=== PATIENT | female | born 1950 | race Caucasian/White ===

== ENCOUNTER → 2017-07-15 | Outpatient (CLI) | payer MEDICARE, MEDICAID ==
[~2017-07-15] MED LIST: CATHETER FLUSH 10 ML SYR IV PRN; CEFU500T PO; DESV100T PO; DIATRIZOATE MEGLUM/SODIUM 37% 120 ML (GASTROGRAFIN) PO ONE; IOHEXOL 350 MG/ML 100 ML (OMNIPAQUE 350) VIAL IV ONE; LIRA0.6P SQ; LNS30CCR PO; MTF500T PO; MTP100TCR PO; NAPR220T76 PO; NITR100C3 PO; NS 100 ML (IVPB) BAG IV ONE; OXYB10TA PO
--- NOTE | 2017-07-15 14:25 | Diagnostic Imaging Report ---
PROCEDURE: CT abdomen and pelvis with contrast. TECHNIQUE: Multiple contiguous axial images were obtained through the abdomen and pelvis after administration of intravenous contrast. INDICATION: History of gastric sleeve. Two previous hernia repair. Comparison with 01/22/2014. FINDINGS: Contrasted images are limited as IV infiltrated. Moderate contrast was obtained, however. The liver appears normal. The gallbladder is absent. The bile ducts not dilated. The pancreas and spleen are normal. The adrenal glands appear normal. The kidneys appear normal. Delayed images show normal-appearing renal collecting system. Both ureters are visualized to the bladder which appear normal. There is gastric sleeve surgery noted. No evidence of bowel obstruction. Small bowel shows oral contrast present. The appendix is visualized and normal. Colon shows normal stool and gas pattern. There is diverticulosis of the descending and sigmoid colon with no definite changes of acute diverticulitis. The spigelian hernia along the anterior right lateral abdominal wall on previous study has been repaired. Mesh appears intact. There is a small new hernia just superior to the mesh in the midline measuring 2 cm at the opening. The hernia sac contains a small amount of omental fat. IMPRESSION: 1. Repaired spigelian hernia without recurrence. 2. Small new hernia has developed along the superior margin of the mesh in the midline. This contains omental fat. Dictated by: Dictated on workstation # [id number]
== END ==
LOC: RAD 11:20
PROVIDERS: ATTEND Obstetrics & Gynecology
DX: K43.9 Ventral hernia without obstruction or gangrene (principal); Z98.84 Bariatric surgery status
CPT/HCPCS: 74177

== ENCOUNTER → 2018-01-17 | Outpatient (CLI) | payer MEDICARE, MEDICAID ==
[~2018-01-17] MED LIST changes: -CATHETER FLUSH 10 ML SYR IV PRN; -DIATRIZOATE MEGLUM/SODIUM 37% 120 ML (GASTROGRAFIN) PO ONE; -NS 100 ML (IVPB) BAG IV ONE; +NS 250 ML (IVPB) BAG IV ONE
[2018-01-17 11:06] LABS: BUN/CREATININE RATIO 25; CREATININE SERUM 0.79 MG/DL (0.60-1.30); GFR ESTIMATED > 60
--- NOTE | 2018-01-17 16:24 | Diagnostic Imaging Report ---
PROCEDURE: CT abdomen and pelvis with and without contrast. TECHNIQUE: Precontrast acquisitions were acquired through the abdomen and pelvis. Multiple contiguous axial images were obtained through the abdomen and pelvis after the administration of intravenous contrast. INDICATION: Hernia. Exam compared 07/15/2017. FINDINGS: Periumbilical fatty hernia is unchanged. Below that level is marked thinning and bulging of the anterior abdominal wall muscles and fascia with full-thickness defect at its inferior margin. The focal herniation contains a segment of diverticulated sigmoid colon unchanged from the prior. No resultant bowel obstruction. No other abdominal wall defect. Postoperative change to the EG junction noted. The liver, spleen, adrenals, pancreas unremarkable. Aortoiliac vessels patent and nonaneurysmal. The uterus, adnexa and urinary bladder appeared unremarkable. There is no ascites, abscess, hematoma or fluid collection. IMPRESSION: Large thinning and bulging of the anterior abdominal wall inferiorly with full-thickness fascial defect at its caudal aspect unchanged from prior. The discrete hernia containing diverticulated sigmoid colon appearing unchanged and without obstruction. Periumbilical fatty hernia unchanged. No bowel, biliary or urinary tract obstruction. No ascites or fluid collection. Dictated by: Dictated on workstation # [id number]
== END ==
LOC: RAD 10:34
PROVIDERS: ATTEND Obstetrics & Gynecology
DX: K40.90 Unilateral inguinal hernia, without obstruction or gangrene, not specified as recurrent (principal); K57.30 Diverticulosis of large intestine without perforation or abscess without bleeding; K42.9 Umbilical hernia without obstruction or gangrene; K43.9 Ventral hernia without obstruction or gangrene
CPT/HCPCS: 36415; 74178; 82565; 84520

== ENCOUNTER → 2018-01-26 | Outpatient (CLI) | payer MEDICARE, MEDICAID ==
[~2018-01-26] MED LIST changes: -IOHEXOL 350 MG/ML 100 ML (OMNIPAQUE 350) VIAL IV ONE; -NS 250 ML (IVPB) BAG IV ONE
--- NOTE | 2018-01-26 10:29 | Diagnostic Imaging Report ---
PROCEDURE: US abdomen complete. TECHNIQUE: Multiple real-time grayscale images were obtained over the abdomen in various projections. INDICATION: Right flank pain. FINDINGS: Liver is normal in size at 15.5 cm. No discrete liver mass is identified. The gallbladder is surgically absent. No intrahepatic or extrahepatic biliary duct dilatation is seen. Visualized pancreas is unremarkable. The spleen is normal in size. The mid and distal aorta are of normal caliber. The IVC is unremarkable. The right and left kidneys are unremarkable. There is no ascites. IMPRESSION: Status post cholecystectomy. No acute feature in the abdomen is identified. Dictated by: Dictated on workstation # [id number]
== END ==
LOC: RAD 08:05
PROVIDERS: ATTEND Nurse Practitioner Community Health
DX: R10.9 Unspecified abdominal pain (principal); Z90.49 Acquired absence of other specified parts of digestive tract
CPT/HCPCS: 76700

== ENCOUNTER → 2018-12-05 | Outpatient (CLI) | payer MEDICARE, MEDICAID ==
[~2018-12-05] MED LIST changes: +CATHETER FLUSH 10 ML SYR IV PRN; +IOPAMIDOL 61% 100 ML (ISOVUE 300) VIAL IV ONE; +NS 100 ML (IVPB) BAG IV ONE; +RECEIVED CONTRAST (Hold Metformin) IV SCH
[2018-12-05 09:03] LABS: BUN/CREATININE RATIO 19; CREATININE SERUM 0.83 MG/DL (0.60-1.30); GFR ESTIMATED > 60
--- NOTE | 2018-12-05 11:35 | Diagnostic Imaging Report ---
PROCEDURE: CT abdomen and pelvis with contrast. TECHNIQUE: Multiple contiguous axial images were obtained through the abdomen and pelvis after administration of intravenous contrast. INDICATION: Anterior abdominal wall hernia. COMPARISON: Comparison made with prior examination from 01/17/2018. FINDINGS: The heart size is normal. The lung bases are clear. The liver is normal in size without focal lesions. Gallbladder is surgically absent. There is no biliary ductal dilatation. The spleen is normal. Pancreas and adrenal glands are unremarkable. The kidneys are normal in appearance. Aorta is nonaneurysmal. Bowel gas pattern is nonspecific. There is a persistent small periumbilical hernia containing only fat. Note is again made of a large caudal defect in the anterior peritoneum with herniation of a small and large bowel. None of this appears to be particularly strangulated or obstructed. There are degenerative changes in the spine. There is no pelvic mass or adenopathy. There is no free air. There are no focal inflammatory changes. IMPRESSION: Anterior abdominal wall hernia inferiorly where there is a full-thickness fascial defect along its caudal aspect. There is unchanged herniation of both large and small bowel. Persistent periumbilical hernia containing only fat. No other acute abnormality in the abdomen or pelvis. Dictated by: Dictated on workstation # [id number]
== END ==
LOC: RAD FS 08:13
DX: K43.2 Incisional hernia without obstruction or gangrene (principal); K42.9 Umbilical hernia without obstruction or gangrene; Z90.49 Acquired absence of other specified parts of digestive tract
CPT/HCPCS: 36415; 74177; 82565; 84520

== ENCOUNTER → 2020-09-19 | Outpatient (CLI) | payer MEDICARE, MEDICAID ==
[~2020-09-19] MED LIST changes: +HOLD METFORMIN - RECEIVED CONTRAST 20 ML VIAL IV SCH; +IOHEXOL 350 MG/ML 100 ML (OMNIPAQUE 350) VIAL IV ONE; -IOPAMIDOL 61% 100 ML (ISOVUE 300) VIAL IV ONE; -RECEIVED CONTRAST (Hold Metformin) IV SCH
--- NOTE | 2020-09-19 10:43 | Diagnostic Imaging Report ---
PROCEDURE: CT abdomen and pelvis with and without contrast. TECHNIQUE: Precontrast acquisitions were acquired through the abdomen and pelvis. Multiple contiguous axial images were obtained through the abdomen and pelvis after the administration of intravenous contrast. Auto Exposure Controls were utilized during the CT exam to meet ALARA standards for radiation dose reduction. INDICATION: Right lower quadrant abdominal pain for two months. COMPARISON: Correlation is made with prior CT from 12/05/2018. FINDINGS: The lung bases are clear. No discrete liver mass is identified. Gallbladder is surgically absent. No biliary ductal dilatation is seen. Postoperative changes from gastric bypass surgery are noted. Pancreas and spleen are unremarkable. No adrenal mass is detected. Kidneys are unremarkable. There is no hydronephrosis. Aorta is non-aneurysmal. There is no central, retroperitoneal or mesenteric lymphadenopathy. Postoperative changes to the anterior abdominal wall are noted. There is some stranding in the subcutaneous fat of the anterior abdominal wall. The small and large bowel loops are normal caliber. No obstruction is seen. The appendix is visualized in the right lower quadrant and appears unremarkable. The bladder and uterus are unremarkable. There is no free fluid or fluid collection. The bony structures are nonacute. IMPRESSION: Postoperative changes to the anterior abdominal wall. No acute process in the abdomen or pelvis is identified. Dictated by: Dictated on workstation # [id number]
== END ==
LOC: RAD FS 08:53
PROVIDERS: ATTEND Nurse Practitioner Community Health
DX: R10.31 Right lower quadrant pain (principal)
CPT/HCPCS: 74178

== ENCOUNTER 2021-02-04 05:32 | Outpatient (CLI) | payer MEDICARE, MEDICAID ==
[~2021-02-04] VITALS: Ht 157.5 cm; Wt 99.5 kg
[~2021-02-04 05:32] MED LIST changes: -CATHETER FLUSH 10 ML SYR IV PRN; -HOLD METFORMIN - RECEIVED CONTRAST 20 ML VIAL IV SCH; -IOHEXOL 350 MG/ML 100 ML (OMNIPAQUE 350) VIAL IV ONE; -NS 100 ML (IVPB) BAG IV ONE
[2021-02-04] MEDS ORDERED: ESTR42.511 VG (11:07)
[2021-02-04] MEDS ORDERED: GABA100C PO (11:07)
[2021-02-04] MEDS ORDERED: LIRA0.6P3 SQ (11:07)
[2021-02-04] MEDS ORDERED: CYAN1TAB26 PO (11:07)
[2021-02-04] MEDS ORDERED: ASPI-999 PO (11:07)
[2021-02-04] MEDS ORDERED: SPIR25TA5 PO (11:07)
== END 2021-02-04 11:59 | disposition home or self-care (01) ==
LOC: PREOP 05:32
PROVIDERS: ATTEND Obstetrics & Gynecology
DX: Z01.818 Encounter for other preprocedural examination (principal)

== ENCOUNTER 2021-02-10 09:11 | Day surgery (SDC) | payer MEDICARE, MEDICAID ==
[2021-02-10] VITALS (12 sets, daily range): BP systolic 114–166; BP diastolic 60–94
[~2021-02-10] VITALS: Ht 157.5 cm; Wt 99.5 kg
[~2021-02-10 09:11] MED LIST changes: +ASPI-999 PO; +CYAN1TAB26 PO; +ESTR42.511 VG; +GABA100C PO; +LIRA0.6P3 SQ; +SPIR25TA5 PO
[2021-02-10] MEDS ORDERED: NS (IVPB) 100 ML ONE (09:24)
[2021-02-10] MEDS ORDERED: VASOPRESSIN INJECTION 20 UNIT/ML VIAL ONE (09:25)
[2021-02-10] MEDS ORDERED: metroNIDAZOLE 500MG/100ML IVPB 100 ML IV ONE (09:30)
[2021-02-10] MEDS ORDERED: ceFAZolin 2 GM IV Premixed 50 ML IV ONE (09:30)
[2021-02-10] MEDS ORDERED: fentaNYL INJ 100 MCG/2 ML AMP ONE (09:38)
[2021-02-10] MEDS ORDERED: MIDAZOLAM 2 MG/2 ML (VERSED) VIAL ONE (09:38)
[2021-02-10] MEDS: LACTATED RINGERS 1,000 ML IV PRN ×2 (09:48→14:02)
[2021-02-10 09:53] LABS: BASOPHILS % (AUTO) 0 % (0-10); EOSINOPHILS # (AUTO) 0.1 10^3/uL (0.0-0.3); EOSINOPHILS % (AUTO) 2 % (0-10); HEMATOCRIT 37 % (35-52); HEMOGLOBIN 11.2 g/dL (11.5-16.0); LYMPHOCYTES # (AUTO) 1.3 10^3/uL (1.0-4.0); LYMPHOCYTES % (AUTO) 29 % (12-44); MEAN CORPUSCULAR HEMOGLOBIN 27 pg (25-34); MEAN CORPUSCULAR HGB CONC 31 g/dL (32-36); MEAN CORPUSCULAR VOLUME 86 fL (80-99); MEAN PLATELET VOLUME 10.3 fL (9.0-12.2); MONOCYTES # (AUTO) 0.3 10^3/uL (0.0-1.0); MONOCYTES % (AUTO) 8 % (0-12); NEUTROPHILS # (AUTO) 2.7 10^3/uL (1.8-7.8); NEUTROPHILS % (AUTO) 61 % (42-75); PLATELET COUNT 174 10^3/uL (130-400); WHITE BLOOD COUNT 4.5 10^3/uL (4.3-11.0)
[2021-02-10 09:53] LABS: BILIRUBIN,URINE NEGATIVE (NEGATIVE); CLARITY,URINE CLEAR; COLOR,URINE YELLOW; GLUCOSE, URINE (UA) NEGATIVE (NEGATIVE); KETONES,URINE NEGATIVE (NEGATIVE); LEUKOCYTE ESTERASE ,URINE TRACE (NEGATIVE); NITRITE,URINE NEGATIVE (NEGATIVE); PROTEIN,URINE NEGATIVE (NEGATIVE)
[2021-02-10 09:55] LABS: BACTERIA,URINE FEW /HPF
--- NOTE | 2021-02-10 10:48 | Progress Note-Pre Operative ---
Pre-Operative Progress Note H&P Reviewed The H&P was reviewed, patient examined and no changes noted. Date Seen by Provider: February 10, 2021 Time Seen by Provider: 10:50 Date H&P Reviewed: February 10, 2021 Time H&P Reviewed: 10:45 Pre-Operative Diagnosis: rectocele, incontinence NIKKI BARRERA DO February 10, 2021 10:48
[2021-02-10] MEDS ORDERED: ESTRADIOL VAGINAL CREAM 42.5 GM (ESTRACE) VG ONE (12:19)
[2021-02-10] MEDS ORDERED: ROCURONIUM 10 MG/ML 5 ML SYRINGE IV ONE (12:20)
[2021-02-10] MEDS ORDERED: LIDOCAINE PF 2% 5 ML (XYLOCAINE) VIAL ONE (12:27)
[2021-02-10] MEDS ORDERED: ONDANSETRON 4 MG/2 ML (SDV) Z0FRAN ONE (12:27)
[2021-02-10] MEDS ORDERED: SEVOFLURANE (ULTANE) 15 ML INHAL SOLN ONE (12:27)
[2021-02-10] MEDS ORDERED: BENZOCAINE/MENTHOL (DERMOPLAST) 56 ML CAN TP PRN (12:30)
[2021-02-10] MEDS ORDERED: morphine INJ 4 MG/ML 1 ML (VIAL/SYRINGE) IVP PRN (12:30)
[2021-02-10] MEDS ORDERED: METOCLOPRAMIDE INJ 10 MG/2 ML (REGLAN) IV PRN (12:30)
[2021-02-10] MEDS ORDERED: MEPERIDINE (DEMEROL) INJ 50 MG/ML IVP ONE (12:45)
[2021-02-10] MEDS ORDERED: morphine INJ 10 MG/ML 1ML (SYR OR VIAL) IVP ONE (12:45)
[2021-02-10] MEDS ORDERED: fentaNYL INJ 100 MCG/2 ML AMP IVP ONE (12:45)
[2021-02-10] MEDS ORDERED: ONDANSETRON 4 MG/2 ML (SDV) Z0FRAN IVP PRN (12:45)
[2021-02-10] MEDS ORDERED: KETOROLAC 30 MG/ML VIAL ONE (12:58)
[2021-02-10] MEDS: KETOROLAC 30 MG/ML VIAL IV SCH ×2 (13:07→20:28)
[2021-02-10] MEDS ORDERED: ACETAMINOPHEN 500 MG TAB (TYLENOL) ONE (14:17)
[2021-02-10] MEDS: ACETAMINOPHEN 500 MG TAB (TYLENOL) PO SCH (14:27)
--- NOTE | 2021-02-10 21:57 | Operative Report ---
Operative Report Date of Procedure/Surgery February 10, 2021 Surgeon (s) NIKKI BARRERA DO Marketing Underwriter (s): Mohamud Valenzuela, MS III Post-Operative Diagnosis Rectocele/enterocele Incontinence Procedure Performed Posterior colporrhaphy Pubovaginal sling Description of Procedure Anesthesia Type: General Specimen(s) collected/removed none Findings of the Procedure 4+ rectocele/enterocele 1-2 + cystocele > 45 deg rotation of the urethra Allergies and Home Medications Allergies Coded Allergies: No Known Drug Allergies (Verified Allergy, Unknown, 07/15/09) Home Medications Aspirin 81 Mg Tab.chew, 81 MG PO DAILY, (Reported) Cyanocobalamin/Folic Acid 1 Each Tablet, 1 EACH PO DAILY, (Reported) Estradiol 42.5 Gm Cream.appl, 1 GM VG MoWeFr, (Reported) Gabapentin 100 Mg Capsule, 100 MG PO BID, (Reported) Liraglutide 0.6 Mg/0.1 Ml Pen.injctr, 1.8 MG SQ DAILY, (Reported) Spironolactone 25 Mg Tablet, 25 MG PO DAILY, (Reported) Patient Home Medication List Home Medication List Reviewed: Yes NIKKI BARRERA DO February 10, 2021 21:57
[2021-02-11 02:10] VITALS: BP 143/68
[2021-02-11] MEDS: KETOROLAC 30 MG/ML VIAL IV SCH ×2 (02:10→08:36)
[2021-02-11 06:25] VITALS: BP 148/70
[2021-02-11] MEDS: LACTATED RINGERS 1,000 ML IV PRN (06:25)
[2021-02-11] MEDS: ACETAMINOPHEN 500 MG TAB (TYLENOL) PO SCH ×2 (08:35→08:37)
--- NOTE | 2021-02-11 08:35 | Anesthesia-General Post-Op ---
General Patient Condition Mental Status/LOC: Same as Preop Cardiovascular: Satisfactory Nausea/Vomiting: Absent Respiratory: Satisfactory Pain: Controlled Complications: Absent Post Op Complications Complications None Follow Up Care/Instructions Patient Instructions None needed. Anesthesia/Patient Condition Patient Condition Patient is doing well, no complaints, stable vital signs, no apparent adverse anesthesia problems. No complications reported per nursing. CHRISTY ESCALERA CRNA February 11, 2021 08:35
--- NOTE | 2021-02-11 08:42 | Progress Note ---
Standard Progress Note Progress Notes/Assess & Plan Date Seen by a Provider: February 11, 2021 Time Seen by a Provider: 08:40 Progress/Assessment & Plan 02/11/21 02/11/21 02:10 06:25 Temp 37.0 37.0 Pulse 72 80 Resp 18 18 B/P (MAP) 143/68 (93) 148/70 (96) Pulse Ox 96 94 O2 Delivery Room Air Room Air 02/11/21 00:00 Intake Total 1250 ml Output Total 850 ml Balance 400 ml NIKKI BARRERA DO February 11, 2021 08:42
[2021-02-11] MEDS ORDERED: ACET-93 PO (08:44)
[2021-02-11] MEDS ORDERED: OXC5T PO (08:44)
[2021-02-11] MEDS ORDERED: DCS100C PO (08:44)
[2021-02-11] MEDS ORDERED: IBUP-844 PO (08:44)
--- NOTE | 2021-02-11 08:46 | Discharge Inst-Women's Service ---
Discharge Inst-Women's Serv Depart Medication/Instructions New, Converted or Re-Newed RX: RX on Chart Instructions keep stools soft Final Diagnosis rectocele stress incontinence Problems Reviewed?: Yes Consults/Follow Up Additional Follow Up: Yes (1 and 6 weeks) Activity Activity: Activity as Tolerated Driving Instructions: You May Drive NO SMOKING: NO SMOKING Nothing Inside Vagina: No Douching, No Claude Diet Discharge Diet: No Restrictions Symptoms to Report to : Bleeding Excessive, Pain Increased, Fever Over 101 Degrees F, Vaginal Bleeding Increase, Cramps in Feet or Legs, Vaginal Discharge Foul For Any Problems or Questions: Contact Your Physician Skin/Wound Care Bathing Instructions: NIKKI Mann DO February 11, 2021 08:46
[2021-02-11] MEDS ORDERED: DOCUSATE SODIUM 100 MG (COLACE) CAP PO SCH (09:00)
[2021-02-11] MEDS ORDERED: ENOXAPARIN 40 MG/0.4 ML (LOVENOX) SYR SC SCH (09:00)
[2021-02-11] MEDS ORDERED: IBUPROFEN 600 MG (MOTRIN) TAB PO SCH (12:30)
[2021-02-12] MEDS ORDERED: ENOXAPARIN 40 MG/0.4 ML (LOVENOX) SYR SC SCH (09:00)
== END 2021-02-11 11:30 | disposition home or self-care (01) ==
LOC: SDC 09:11 → WS 14:04 → SDC 02-11 11:30
PROVIDERS: ATTEND Obstetrics & Gynecology
DX: N81.10 Cystocele, unspecified (principal); N81.6 Rectocele; N81.5 Vaginal enterocele; E78.5 Hyperlipidemia, unspecified; I10 Essential (primary) hypertension; K21.9 Gastro-esophageal reflux disease without esophagitis; M19.90 Unspecified osteoarthritis, unspecified site; E11.51 Type 2 diabetes mellitus with diabetic peripheral angiopathy without gangrene; N39.46 Mixed incontinence; N95.2 Postmenopausal atrophic vaginitis; E66.01 Morbid (severe) obesity due to excess calories; Z68.41 Body mass index [BMI] 40.0-44.9, adult; Z79.82 Long term (current) use of aspirin; Z79.899 Other long term (current) drug therapy
CPT/HCPCS: 57250; 57288; 81000; 82947; 85025; 87077; 87081; 87088; 87186; C1771; 36415

== ENCOUNTER → 2021-04-06 | Outpatient (CLI) | payer MEDICARE, MEDICAID ==
[~2021-04-06] MED LIST changes: +ACET-93 PO; +DCS100C PO; +IBUP-844 PO; +OXC5T PO
[2021-04-06 11:35] LABS: BASOPHILS % (AUTO) 1 % (0-10); EOSINOPHILS % (AUTO) 3 % (0-10); HEMATOCRIT 38 % (35-52); HEMOGLOBIN 11.6 G/DL (11.5-16.0); LYMPHOCYTES % (AUTO) 41 % (12-44); MEAN CORPUSCULAR HEMOGLOBIN 27 PG (25-34); MEAN CORPUSCULAR HGB CONC 31 G/DL (32-36); MEAN CORPUSCULAR VOLUME 87 FL (80-99); MEAN PLATELET VOLUME 10.3 FL (7.4-10.4); MONOCYTES % (AUTO) 8 % (0-12); NEUTROPHILS % (AUTO) 47 % (42-75); PLATELET COUNT 153 10^3/uL (130-400); WHITE BLOOD COUNT 3.4 10^3/uL (4.3-11.0)
[2021-04-06 11:36] LABS: EOSINOPHILS # (AUTO) 0.1 10^3/uL (0.0-0.3); LYMPHOCYTES # (AUTO) 1.4 X 10^3 (1.0-4.0); MONOCYTES # (AUTO) 0.3 X 10^3 (0.0-1.0); NEUTROPHILS # (AUTO) 1.6 X 10^3 (1.8-7.8)
[2021-04-06 11:49] LABS: CARBON DIOXIDE 26 MMOL/L (21-32); CHLORIDE 109 MMOL/L (98-107); POTASSIUM 3.9 MMOL/L (3.6-5.0); SODIUM 142 MMOL/L (135-145)
[2021-04-06 11:50] LABS: ALANINE AMINOTRANSFERASE 14 U/L (0-55); ALBUMIN 3.5 GM/DL (3.2-4.5); ALKALINE PHOSPHATASE 129 U/L (40-136); BILIRUBIN,TOTAL 0.3 MG/DL (0.1-1.0); BUN/CREATININE RATIO 24; CALCIUM 8.8 MG/DL (8.5-10.1); CREATININE SERUM 0.83 MG/DL (0.60-1.30); GFR ESTIMATED > 60; GLUCOSE 139 MG/DL (70-105); TOTAL PROTEIN 6.1 GM/DL (6.4-8.2)
--- NOTE | 2021-04-06 17:16 | Diagnostic Imaging Report ---
CLINICAL INDICATION: Patient with right lower quadrant abdominal pain. Patient has no history of cancer. Patient has past surgical history of panniculectomy. EXAM: Axial CT scan of abdomen and pelvis performed without IV contrast. Sagittal and coronal reformatted images are created. Auto Exposure Controls were utilized during the CT exam to meet ALARA standards for radiation dose reduction. COMPARISON: CT scan of the abdomen and pelvis with contrast dated 12/05/2018. FINDINGS: The visualized lung bases are clear. There are hypertrophic spurs involving the visualized lower thoracic spine and lumbar spine. There is lower lumbar spine facet arthropathy. There is sclerosis and spurring of the sacroiliac joints. Gallbladder surgically resected. The liver, spleen, and adrenal glands are unremarkable. Stable mild atrophy of the pancreas which is otherwise unremarkable. Both kidneys are unremarkable. There is no stones or hydronephrosis. The bladder is predominantly decompressed with no gross abnormality visualized. The uterus and bilateral adnexal regions are unremarkable. There is no intra-abdominal free air or free fluid. The appendix is unremarkable. There is no intestinal obstruction. Stable postop changes to the stomach likely related to gastroplasty. There is surgical anastomosis of small bowel overlying the left abdomen. There is diverticulosis involving the sigmoid colon but no CT evidence of diverticulitis. Stable postoperative changes to the anterior abdominal wall and anterior low intra-abdominal fat with scarring and architectural distortion seen. There is no interval development of fluid collection, mass, or inflammation seen. Mild scarring and fat stranding in the anterior abdominal region subcutaneous fat likely from postoperative changes and/or soft tissue edema. The remainder of the extra-abdominal and extrapelvic soft tissue structures are unremarkable. IMPRESSION: 1: Stable CT scan of the abdomen and pelvis with no interval evidence of acute abdominal or pelvic process. The appendix is unremarkable. There are no urinary tract stones seen. 2: Stable postoperative changes related to gastroplasty. The gallbladder surgically resected. 3: Stable postoperative changes to the anterior abdominal wall and fat regions. Dictated by: Dictated on workstation # [id number]
== END ==
LOC: LAB FS 11:13
PROVIDERS: ATTEND Nurse Practitioner Family
DX: E11.9 Type 2 diabetes mellitus without complications (principal); R10.9 Unspecified abdominal pain
CPT/HCPCS: 36415; 74176; 80053; 85025

== ENCOUNTER 2021-04-30 09:20 | Outpatient (CLI) | payer MEDICARE, MEDICAID ==
[~2021-04-30] VITALS: Ht 157.5 cm; Wt 99.9 kg
[2021-04-30 09:20] VITALS: BP 144/76
[2021-04-30] MEDS ORDERED: EPINEPHrine INJECTION 1 MG/ML AMP IM PRN (09:30)
[2021-04-30] MEDS ORDERED: diphenhydrAMINE 50 MG/ML INJ (BENADRYL) IV PRN (09:30)
[2021-04-30] MEDS ORDERED: CASIRIVIMAB/IMDEVIMAB 1,200 MG in NS (IVPB) 250 ML IV ONE (09:30)
[2021-04-30 11:06] VITALS: BP 105/58
== END 2021-04-30 11:13 ==
LOC: INFUSION 09:20
PROVIDERS: ATTEND Nurse Practitioner Family
DX: Z23 Encounter for immunization (principal); U07.1 COVID-19

== ENCOUNTER → 2022-04-01 | Outpatient (CLI) | payer MEDICARE, MEDICAID ==
[~2022-04-01] MED LIST changes: -DCS100C PO; +DOCU-239 PO
--- NOTE | 2022-04-01 08:50 | Diagnostic Imaging Report ---
Indication: Generalized abdominal pain and bloating. Surgical clips gallbladder fossa are noted. The bowel gas pattern is nonobstructed. No pathologic calcifications are seen. IMPRESSION: No acute abnormalities detected. Dictated by: Dictated on workstation # [id number]
== END ==
LOC: RAD FS 08:35
PROVIDERS: ATTEND Nurse Practitioner Family
DX: R10.84 Generalized abdominal pain (principal); R14.0 Abdominal distension (gaseous)
CPT/HCPCS: 74018

== ENCOUNTER → 2022-04-21 | Outpatient (CLI) | payer MEDICARE, MEDICAID ==
[~2022-04-21] MED LIST changes: +GADOTERATE 0.5 MMOL/ML (CLARISCAN) 20 ML VIAL IV ONE
--- NOTE | 2022-04-21 16:29 | Diagnostic Imaging Report ---
PROCEDURE: MR imaging of the brain with and without contrast. TECHNIQUE: Multiplanar, multisequence MR imaging of the brain was performed with and without contrast. INDICATION: Loss of balance. COMPARISON: None. FINDINGS: Mild generalized cerebral and cerebellar parenchymal volume loss. Moderate to advanced T2 hyperintensities in the supratentorial and pontine white matter. No abnormal intracranial enhancement. No restricted water diffusion. No hemosiderin deposition or evidence of intracranial hemorrhage. Normal morphology including the major midline structures, sella, posterior fossa and cerebellar pontine angle. Normal intracranial flow voids. Postoperative changes in the globes. The paranasal sinuses and mastoids are clear. Normal bone marrow signal. IMPRESSION: 1. Moderate to advanced nonspecific T2 hyperintensities in the supratentorial and pontine white matter most compatible with chronic small vessel ischemic change. No abnormal intracranial enhancement. 2. No acute intracranial MRI findings. No evidence of acute infarction or hemorrhage. Dictated by: Dictated on workstation # [id number]
== END ==
LOC: RAD 12:55
PROVIDERS: ATTEND Nurse Practitioner Family
DX: R26.89 Other abnormalities of gait and mobility (principal); R29.90 Unspecified symptoms and signs involving the nervous system
CPT/HCPCS: 70553

== ENCOUNTER 2023-08-06 14:42 | Emergency (ER) | payer MEDICARE, MEDICAID ==
[~2023-08-06] VITALS: Ht 157 cm; Wt 94.0 kg
[~2023-08-06 14:42] MED LIST changes: -GADOTERATE 0.5 MMOL/ML (CLARISCAN) 20 ML VIAL IV ONE
--- NOTE | 2023-08-06 14:45 | ED Fall/Injury ---
General Stated Complaint: HEAD INJ | FALL History of Present Illness Date Seen by Provider: Aug 06, 2023 Time Seen by Provider: 14:45 Initial Comments 73-year-old female presents following a fall. Patient was at a racetrack outside when she tripped over a Coke fell and hit her head. She has a large hematoma and abrasion on the left side of her frontal scalp. She did not lose consciousness. She has no other systemic complaints or injuries noted Allergies and Home Medications Allergies Coded Allergies: No Known Drug Allergies (Verified , 04/30/21) Patient Home Medication List Home Medication List Reviewed: Yes Acetaminophen (Acetaminophen) 500 Mg Tablet, 1,000 MG PO Q8HR Prescribed by: NIKKI BARRERA on 02/11/21843 Aspirin (Aspirin) 81 Mg Tab.chew, 81 MG PO DAILY, (Reported) Entered as Reported by: GAURI PERRY on 02/04/211106 Cyanocobalamin/Folic Acid (Vitamin S72-Yplsy Acid Tablet) 1 Each Tablet, 1 EACH PO DAILY, (Reported) Entered as Reported by: GAURI PERRY on 02/04/211106 Docusate Sodium (Dok) 100 Mg Capsule, 100 MG PO BID Prescribed by: NIKKI BARRERA on 02/11/21843 Estradiol (Estradiol) 42.5 Gm Cream.appl, 1 GM VG MoWeFr, (Reported) Entered as Reported by: GAURI PERRY on 02/04/211106 Gabapentin (Neurontin) 100 Mg Capsule, 100 MG PO BID, (Reported) Entered as Reported by: GAURI PERRY on 02/04/211106 Liraglutide (Victoza 3-Larry) 0.6 Mg/0.1 Ml Pen.injctr, 1.8 MG SQ DAILY, (Reported) Entered as Reported by: GAURI PERRY on 02/04/211106 Oxycodone Hcl (Oxyir Tablet) 5 Mg Tab, 5 MG PO Q4H PRN for PAIN-SEVERE (8-10) Prescribed by: NIKKI BARRERA on 02/11/21 08 Spironolactone (Spironolactone) 25 Mg Tablet, 25 MG PO DAILY, (Reported) Entered as Reported by: GAURI PERRY on 4/28/21 1107 Review of Systems Review of Systems Constitutional: see HPI Eyes: No Symptoms Reported Ears, Nose, Mouth, Throat: see HPI Respiratory: no symptoms reported Cardiovascular: no symptoms reported Gastrointestinal: no symptoms reported Genitourinary: no symptoms reported Skin: see HPI Past Egupzrm-Noiqsy-Evfkci Hx Seasonal Allergies Seasonal Allergies: No Past Medical History Surgeries: Yes (gastric sleeve, bilat CTR, hernia x3, skin removed, ) Bladder Surgery, Section, Gallbladder Respiratory: No Currently Using CPAP: No Currently Using BIPAP: No Cardiac: No Neurological: Yes Neuropathy Reproductive Disorders: No Sexually Transmitted Disease: No Genitourinary: Yes (cystocele ) Gastrointestinal: Yes (rectocele) Abdominal Hernia Musculoskeletal: No Endocrine: Yes Diabetes, Non-Insulin dep HEENT: Yes (cataracts removed, dentures) Cancer: Yes Skin Psychosocial: No Integumentary: No Blood Disorders: No Physical Exam Vital Signs Vital Signs - First Documented 08/06/23 14:48 Temp 36.4 Pulse 74 Resp 16 B/P (MAP) 150/78 (102) Pulse Ox 97 O2 Delivery Room Air Capillary Refill : Height, Weight, BMI Height: 0'63.00" Weight: 315lbs. oz. 142.583344qm; 40.11 BMI Method: General Appearance: WD/WN, no apparent distress HEENT: PERRL/EOMI Neck: non-tender, full range of motion Cardiovascular: normal peripheral pulses, regular rate, rhythm Respiratory: lungs clear, normal breath sounds Extremities: normal range of motion, non-tender Neurologic/Psychiatric: alert, normal mood/affect, oriented x 3 Skin: other (Left frontal scalp hematoma and abrasion noted) Progress/Results/Core Measures Results/Orders My Orders Orders - KIKI RASHEED DO Ct Head Wo (08/06/23 14:53) Vital Signs/I&O 08/06/23 14:48 Temp 36.4 Pulse 74 Resp 16 B/P (MAP) 150/78 (102) Pulse Ox 97 O2 Delivery Room Air Progress Progress Note : Progress Note Patient CT shows no acute intracranial findings. She does have a scalp hematoma which I discussed with her supportive care. Patient has no other concerns or physical findings. He is stable and discharged home Diagnostic Imaging Diagonstic Imaging: CT Plain Films/CT/US/NM/MRI: head Comments Date of Exam:08/06/23 CT HEAD WO PROCEDURE: CT head without contrast. TECHNIQUE: Multiple contiguous axial images were obtained through the brain without the use of intravenous contrast. Auto Exposure Controls were utilized during the CT exam to meet ALARA standards for radiation dose reduction. INDICATION: Head injury. COMPARISON: MRI brain 04/21/2022. FINDINGS: Scalp contusion overlying the left frontal convexity. No fractures. No intracranial hemorrhage, mass effect, hydrocephalus or extra-axial fluid collections. No CT evidence of a territorial infarction. Paranasal sinuses and mastoids are unremarkable. IMPRESSION: 1. Scalp contusion overlying left frontal convexity. No fractures. 2. No acute intracranial CT findings. Departure Impression Primary Impression: Traumatic hematoma of forehead Qualified Codes: S00.83XA - Contusion of other part of head, initial enc ounter Additional Impressions: Fall from slip, trip, or stumble Qualified Codes: W01.0XXA - Fall on same level from slipping, tripping and stumbling without subsequent striking against object, initial encounter Minor head injury without loss of consciousness Qualified Codes: S09.90XA - Unspecified injury of head, initial encounter Disposition: 01 HOME, SELF-CARE Condition: Stable Departure-Patient Inst. Referrals: CHRIS RODRIGUEZ APRN (PCP/Family) Primary Care Physician Patient Instructions: Minor Head Injury (DC), Concussion, Adult ED Add. Discharge Instructions: Tylenol or ibuprofen as needed for discomfort. Ice to affected area for the next 24 hours 3-4 times daily. Follow-up your primary care provider as needed. KIKI RASHEED DO Aug 06, 2023 14:45
--- NOTE | 2023-08-06 15:14 | Diagnostic Imaging Report ---
PROCEDURE: CT head without contrast. TECHNIQUE: Multiple contiguous axial images were obtained through the brain without the use of intravenous contrast. Auto Exposure Controls were utilized during the CT exam to meet ALARA standards for radiation dose reduction. INDICATION: Head injury. COMPARISON: MRI brain 04/21/2022. FINDINGS: Scalp contusion overlying the left frontal convexity. No fractures. No intracranial hemorrhage, mass effect, hydrocephalus or extra-axial fluid collections. No CT evidence of a territorial infarction. Paranasal sinuses and mastoids are unremarkable. IMPRESSION: 1. Scalp contusion overlying left frontal convexity. No fractures. 2. No acute intracranial CT findings. Dictated by: Dictated on workstation # [id number]
[2023-08-06 15:20] VITALS: BP 150/78
== END 2023-08-06 15:23 | disposition home or self-care (01) ==
LOC: EDUNIT# 14:42 → ER FS 14:44
DX: S09.90XA Unspecified injury of head, initial encounter (principal); S00.03XA Contusion of scalp, initial encounter; W01.198A Fall on same level from slipping, tripping and stumbling with subsequent striking against other object, initial encounter; Y92.39 Other specified sports and athletic area as the place of occurrence of the external cause
CPT/HCPCS: 70450